=== PATIENT | female | born 2000 | race Caucasian/White ===

== ENCOUNTER 2018-07-31 21:09 | Emergency (ER) | payer BC ==
[2018-07-31] MEDS ORDERED: Ketorolac Tromethamine 60 MG/2 ML VIAL ONE (21:59)
[2018-07-31 22:08] LABS: Bilirubin Negative (Negative); Blood, Urine Negative (Negative); Clarity Clear (Clear); Glucose, Urine (Dipstick) Negative (Negative); Leukocyte Trace (Negative); Nitrite Negative (Negative); Protein, Urine (Dipstick) Negative (Neg-Trace); Urobilinogen 0.2 mg/dL (0.2-1.0)
[2018-07-31 22:19] LABS: RBC/HPF 0-3 HPF (0-3)
[2018-07-31 22:20] LABS: Pregnancy Test - Urine (BHCG) Negative (Negative); Pregu Control Background? CLEAR/WHITE (CLR/WHITE); Pregu Control Bar Appear? YES (CONTROL BAR)
== END 2018-07-31 22:22 | disposition short-term general hospital (02) ==
LOC: NAV ERS 21:09
DX: R10.2 Pelvic and perineal pain (principal); Z79.899 Other long term (current) drug therapy
CPT/HCPCS: 81003; 81015; 81025; 96372; J1885